=== PATIENT | male | born 1940 | race Hispanic/Latino ===

== ENCOUNTER 2018-01-18 09:48 | Emergency (ER) | payer MEDICARE ==
--- NOTE | 2018-01-18 10:46 | XRay Report ---
LEFT FOOT, 3 views: History: Trauma to left foot. The bony architecture is intact. Bony alignment is normal. The joint spaces appear preserved. There is mild dorsal soft tissue swelling. IMPRESSION: Soft tissue swelling. No acute osseous injury is identified.
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
[2018-01-18 11:55] VITALS: BP 146/72
== END 2018-01-18 11:53 | disposition home or self-care (01) ==
LOC: ED 09:48
DX: S90.32XA Contusion of left foot, initial encounter (principal); I10 Essential (primary) hypertension; E11.9 Type 2 diabetes mellitus without complications; F17.200 Nicotine dependence, unspecified, uncomplicated; G20 Parkinson's disease; W22.8XXA Striking against or struck by other objects, initial encounter; Y93.89 Activity, other specified; Y92.89 Other specified places as the place of occurrence of the external cause; Y99.8 Other external cause status
CPT/HCPCS: 99283